=== PATIENT | female | born 1935 | race African-American/Black ===

== ENCOUNTER 2017-02-28 22:10 | Emergency (ER) | payer MEDICARE, OTHER ==
[~2017-02-28] VITALS: Ht 162.6 cm; Wt 115.0 kg
[~2017-02-28 22:10] MED LIST: AMLO2.5T PO; ATOR10TA PO; BENZ100C4 PO; FERR15DR PO; FURO20 PO; GLIP2.5T6 PO; METO25 PO; PROT40TA PO
[2017-02-28 22:14] VITALS: BP 119/79; PULSE 80; RESP 18; TEMP 97.8; O2SAT 98
--- NOTE | 2017-02-28 22:47 | PD ---
Physical Exam Date Seen by Provider: Feb 28, 2017 Time Seen by Provider: 22:42 Narrative Pt is an 81 y/o female presenting to the ED for evaluation of abdominal pain, SOB, abdominal bloating. Pt's family member states anxiety is her main problem. Last BM was this afternoon. No fevers, chills, nausea or vomiting. No urinary complaints. Pain is a 7/10. PCP is Brigitte in [place]. VSS, awaiting bed placement Data Data Last Documented VS Vital Signs Date Time Temp Pulse Resp B/P Pulse Ox O2 Delivery O2 Flow Rate FiO2 02/28/17 22:14 97.8 80 18 119/79 98 Room Air [facility] Supervised Visit with PARDEEP: Marilyn Marie Feb 28, 2017 22:47
[2017-02-28] MEDS ORDERED: AMLO2.5T PO (23:03)
[2017-02-28] MEDS ORDERED: ATOR10TA15 PO (23:03)
[2017-02-28] MEDS ORDERED: FURO1TAB62 PO (23:03)
[2017-02-28] MEDS ORDERED: PROT40TA PO (23:03)
[2017-02-28] MEDS ORDERED: BENZ1CAP8 PO (23:03)
[2017-02-28] MEDS ORDERED: FERR325T PO (23:03)
[2017-02-28] MEDS ORDERED: METO25TA3 PO (23:03)
[2017-02-28] MEDS ORDERED: GLIP1TAB51 PO (23:03)
[2017-02-28] MEDS ORDERED: SODIUM CHLORIDE 0.9% FLUSH 10 ML FLUSH IVF PRN (23:30)
[2017-02-28] MEDS ORDERED: LORazepam 1 MG TAB PO ONE (23:30)
--- NOTE | 2017-02-28 23:43 | PD ---
HPI Chief Complaint: Anxiety Time Seen by Provider: 22:52 Travel History International Travel<30 days: No Contact w/Intl Traveler<30days: No Traveled to known affect area: No History of Present Illness HPI Patient 81-year-old female presents emergency Department with multiple complaints. Patient states all these complaints been going on for many months to years. Patient is accompanied by her longtime friend who states that she thinks anxiety as well as causing the return of her symptoms. First complaint is abdominal pain. Patient states that her belly is very large and it hurts constantly. She states his been going on for years. Second complaint she states that when she lies down flat she become somewhat short of breath. She was told that she had CHF in the past. She states that she has no more short of breath today than she has been for the past year. Denies any chest pain. Third complaint is that she has sores on the back of her thighs. States he's been tender for some time. Fourth complaint is that she becomes very anxious with all these complaints. She has been to multiple other emergency departments recently including but now. All of her complaints of fairly vague and she cannot expound them further. PFSH Past Medical History Asthma: No Autoimmune Disease: No Heart Rhythm Problems: No Cancer: No Cardiovascular Problems: Yes (CHF, ) High Cholesterol: Yes Chest Pain: No Congestive Heart Failure: Yes COPD: Yes Diabetes: Yes Patient Takes Glucophage: Yes Endocrine: Yes Gastrointestinal Disorders: Yes GERD: Yes Genitourinary: No Hiatal Hernia: No Hypertension: Yes Immune Disorder: No Implanted Vascular Access Dvce: No Musculoskeletal: No Neurologic: No Psychiatric: No Reproductive: No Respiratory: Yes Immunizations Current: Yes Sleep Apnea: No Thyroid Disease: No Ulcer: No Tetanus Vaccination: Unknown Influenza Vaccination: No ?: Not Past Surgical History Other Surgery: No Social History Alcohol Use: No Tobacco Use: No Substance Use: No Allergies-Medications (Allergen,Severity, Reaction): Coded Allergies: No Known Allergies (Unverified , 02/28/17) Reported Meds & Prescriptions Reported Meds & Active Scripts Active El[place] (Hydrocodone-Acetaminophen) 5-325 mg Tab 1 Tab PO Q8HR PRN Reported Protonix (Pantoprazole Sodium) 40 Mg Tab 40 Mg PO DAILY Metoprolol Tartrate 25 Mg Tab 25 Mg PO BID Glipizide ER (Glipizide) 10 Mg Liyah 10 Mg PO DAILY Take with breakfast or first main meal of the day Lasix (Furosemide) 20 Mg Tab 20 Mg PO DAILY Ferrous Sulfate 325 Mg Tab 325 Mg PO BID Benzonatate 100 Mg Cap 100 Mg PO TID PRN Atorvastatin (Atorvastatin Calcium) 10 Mg Tab 10 Mg PO DAILY Amlodipine (Amlodipine Besylate) 2.5 Mg Tab 2.5 Mg PO HS Review of Systems Except as stated in HPI: all other systems reviewed are Neg Physical Exam Narrative GENERAL: Well-developed well-nourished, morbidly obese in no apparent distress, sitting in a wheelchair comfortably. SKIN: Focused skin assessment warm/dry. Patient has some early pressure ulcers developing in the gluteal fight clefts bilaterally. These are noninfected. Otherwise no rash no skin breakdown is observed. HEAD: Atraumatic. Normocephalic. EYES: Pupils equal and round. No scleral icterus. No injection or drainage. ENT: No nasal bleeding or discharge. Mucous membranes pink and moist. NECK: Trachea midline. No JVD. CARDIOVASCULAR: Regular rate and rhythm. No murmur appreciated. RESPIRATORY: No accessory muscle use. Clear to auscultation. Breath sounds equal bilaterally. GASTROINTESTINAL: Abdomen soft, minimally tender over her pannus which is fairly large. nondistended. Hepatic and splenic margins not palpable. MUSCULOSKELETAL: No obvious deformities. No clubbing. No cyanosis. No edema. NEUROLOGICAL: Awake and alert. No obvious cranial nerve deficits. Motor grossly within normal limits. Normal speech. PSYCHIATRIC: Appropriate mood and affect; insight and judgment normal. Data Data Last Documented VS Vital Signs Date Time Temp Pulse Resp B/P Pulse Ox O2 Delivery O2 Flow Rate FiO2 03/01/17 00:58 78 18 125/82 98 02/28/17 23:54 Room Air 02/28/17 22:14 97.8 Orders Electrocardiogram (02/28/17 23:21) Ckmb (Isoenzyme) Profile (02/28/17 23:21) Complete Blood Count With Diff (02/28/17 23:21) Comprehensive Metabolic Panel (02/28/17 23:21) Magnesium (Mg) (02/28/17 23:21) Prothrombin Time / Inr (Pt) (02/28/17 23:21) Act Partial Throm Time (Ptt) (02/28/17 23:21) Troponin I (02/28/17 23:21) Chest, Single Ap (02/28/17 23:21) Ecg Monitoring (02/28/17 23:21) Bilateral Bp Monitoring (02/28/17 23:21) Iv Access Insert/Monitor (02/28/17 23:21) Oximetry (02/28/17 23:21) Oxygen Administration (02/28/17 23:21) Sodium Chloride 0.9% Flush (Ns Flush) (02/28/17 23:30) Lorazepam (Ativan) (02/28/17 23:30) Oxycodone-Acetamin 5-325 Mg (Percocet (02/28/17 23:45) CKMB (02/28/17 23:45) CKMB% (02/28/17 23:45) Labs Laboratory Tests Test 02/28/17 23:45 White Blood Count 5.6 TH/MM3 Red Blood Count 5.45 MIL/MM3 Hemoglobin 12.6 GM/DL Hematocrit 39.8 % Mean Corpuscular Volume 73.1 FL Mean Corpuscular Hemoglobin 23.2 PG Mean Corpuscular Hemoglobin 31.7 % Concent Red Cell Distribution Width 18.4 % Platelet Count 206 TH/MM3 Mean Platelet Volume 8.8 FL Neutrophils (%) (Auto) 69.5 % Lymphocytes (%) (Auto) 17.3 % Monocytes (%) (Auto) 10.3 % Eosinophils (%) (Auto) 1.4 % Basophils (%) (Auto) 1.5 % Neutrophils # (Auto) 3.9 TH/MM3 Lymphocytes # (Auto) 1.0 TH/MM3 Monocytes # (Auto) 0.6 TH/MM3 Eosinophils # (Auto) 0.1 TH/MM3 Basophils # (Auto) 0.1 TH/MM3 CBC Comment AUTO DIFF Differential Comment AUTO DIFF CONFIRMED Ovalocytes 1+ Prothrombin Time 12.2 SEC Prothromb Time International 1.1 RATIO Ratio Activated Partial 24.7 SEC Thromboplast Time Sodium Level 138 MEQ/L Potassium Level 5.2 MEQ/L Chloride Level 106 MEQ/L Carbon Dioxide Level 20.0 MEQ/L Anion Gap 12 MEQ/L Blood Urea Nitrogen 37 MG/DL Creatinine 1.81 MG/DL Estimat Glomerular Filtration 32 ML/MIN Rate Random Glucose 189 MG/DL Calcium Level 9.1 MG/DL Magnesium Level 2.3 MG/DL Total Bilirubin 0.6 MG/DL Aspartate Amino Transf 40 U/L (AST/SGOT) Alanine Aminotransferase 80 U/L (ALT/SGPT) Alkaline Phosphatase 188 U/L Total Creatine Kinase 168 U/L Creatine Kinase MB 1.5 NG/ML Troponin I 0.02 NG/ML Total Protein 6.2 GM/DL Albumin 3.4 GM/DL MDM Medical Decision Making Medical Screen Exam Complete: Yes Emergency Medical Condition: Yes Interpretation(s) EKG shows sinus rhythm left axis deviation, poor R-wave progression. No concerning ST-T changes. Intervals within normal limits. This an abnormal EKG. Comparison to a 31/03/2016 shows new left axis deviation. Differential Diagnosis Anxiety, chronic pain, panniculitis, acute CHF unlikely, acute LA highly unlikely. Narrative Course Patient roomed in the ER. She appears anxious. Initial testing shows evidence for mild DOC. However patient states that she has had CKD. After meds she is feeling better and wants to go home. Patient would like to discuss Cr with her PCP in the morning. I insisted that she do so. Her main concern at this point is her pannus and she would like to get rid of it. I discussed that at this point her only option would be a panniculectomy which may be too dangerous to undergo. She requested pain medication to go home with and i will oblige. Discussed return to ED criteria. Her physicial exam and basic labs are highly inconsistent with acute medical emergency at this time. She is stable for discharge. Diagnosis Primary Impression: Abdominal pain Qualified Code: R10.84 - Generalized abdominal pain Additional Impression: Anxiety Additional Instructions: Please discuss with your regular doctor your lab values: CR of 1.8, K of 5.2. Med/Other Pt SpecificInfo: Prescription(s) given Scripts Hydrocodone-Acetaminophen ([place])5-325 mg Tab1 Tab PO Q8HR PRN (PAIN) #10 TAB Ref 0 Prov:Gaurav Murphy MD 03/01/17 Disposition: 01 DISCHARGE HOME Condition: Stable Gaurav Murphy MD Feb 28, 2017 23:43
[2017-02-28] MEDS ORDERED: oxyCODONE/ACETAMINOPHEN 5 MG/325 MG TAB PO ONE (23:45)
[2017-02-28 23:54] VITALS: RESP 18
[2017-02-28 23:56] LABS: AUTOMATED NEUTROPHIL # 3.9 TH/MM3 (1.8-7.7); BASOPHIL # 0.1 TH/MM3 (0-0.2); BASOPHIL % 1.5 % (0.0-2.0); EOSINOPHIL # 0.1 TH/MM3 (0-0.4); EOSINOPHIL % 1.4 % (0.0-4.0); HEMATOCRIT 39.8 % (35.0-46.0); LYMPH % 17.3 % (9.0-44.0); MEAN CELL VOLUME 73.1 FL (80.0-100.0); MEAN CORPUSCULAR HEMOGLOBIN 23.2 PG (27.0-34.0); MEAN CORPUSCULAR HGB CONC 31.7 % (32.0-36.0); MONO % 10.3 % (0.0-8.0); NEUT % 69.5 % (16.0-70.0); PLATELET COUNT 206 TH/MM3 (150-450); RED BLOOD COUNT 5.45 MIL/MM3 (4.00-5.30); RED CELL DISTRIBUTION WIDTH 18.4 % (11.6-17.2); WHITE BLOOD COUNT 5.6 TH/MM3 (4.0-11.0)
[2017-02-28 23:59] LABS: HEMO FLAGS AUTO DIFF
[2017-03-01 00:02] LABS: APTT (PATIENT) 24.7 SEC (24.3-30.1); INTERNATIONAL NORMALIZED RATIO 1.1 RATIO; PROTHROMBIN TIME - PATIENT 12.2 SEC (9.8-11.6)
[2017-03-01 00:04] LABS: ANION GAP 12 MEQ/L (5-15); AST (GOT) 40 U/L (15-37); BLOOD UREA NITROGEN 37 MG/DL (7-18); CHLORIDE 106 MEQ/L (98-107); GLOMERULAR FILTRATION RATE 32 ML/MIN (>89); MAGNESIUM 2.3 MG/DL (1.5-2.5); POTASSIUM 5.2 MEQ/L (3.5-5.1); SODIUM (NA) 138 MEQ/L (136-145)
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
[2017-03-01 00:09] LABS: ALKALINE PHOSPHATASE 188 U/L (45-117); ALT (GPT) 80 U/L (10-53); CREATINE KINASE 168 U/L (26-192); TOTAL BILIRUBIN ADULT 0.6 MG/DL (0.2-1.0)
[2017-03-01 00:21] LABS: CKMB 1.5 NG/ML (0.5-3.6); OVALOCYTES 1+ (NORMAL); SCAN/DIFF AUTO DIFF CONFIRMED
[2017-03-01] MEDS ORDERED: NORC5TAB PO ×2 (00:41→00:45)
[2017-03-01 00:58] VITALS: BP 125/82
--- NOTE | 2017-03-01 13:38 | EKG ---
Date Performed: 02/28/2017 Time Performed: 23:41:49 PTAGE: 81 years EKG: Sinus rhythm MARKED LEFT AXIS DEVIATION LOW QRS VOLTAGE IN PRECORDIAL LEADS POSSIBLE ANTEROSEPTAL MYOCARDIAL INFA RCTION ABNORMAL ECG PREVIOUS TRACING : 07/06/2016 18.29 Compared to previous tracing the axis has shifted leftward. DOCTOR: Javier Cleary Interpretating Date/Time 03/01/2017 13:36:05
== END 2017-03-01 00:58 | disposition home or self-care (01) ==
LOC: NEPD 22:10
DX: R10.9 Unspecified abdominal pain (principal); F41.9 Anxiety disorder, unspecified; E65 Localized adiposity; I50.9 Heart failure, unspecified; E11.9 Type 2 diabetes mellitus without complications; J44.9 Chronic obstructive pulmonary disease, unspecified; R94.31 Abnormal electrocardiogram [ECG] [EKG]; I10 Essential (primary) hypertension; Z79.4 Long term (current) use of insulin
CPT/HCPCS: 71010; 80053; 82550; 82552; 83735; 84484; 85025; 85610; 85730; 93005